=== PATIENT | male | born 1960 | race Caucasian/White ===

== ENCOUNTER 2017-03-14 15:24 | Emergency (ER) | payer MEDICAID, OTHER ==
[~2017-03-14] VITALS: Ht 177.8 cm; Wt 72.8 kg
[2017-03-14 15:26] VITALS: Ht 177.8 cm; Wt 72.8 kg
--- NOTE | 2017-03-14 16:50 | ERD ---
ER Documentation Chief Complaint Chief Complaint Sent from for dominik HTN HPI This is a 57-year-old male who is presenting with hypertension. The patient was reportedly at a dermatology appointment when he was found to have a blood pressure of 180/108. His clinic encouraged him to come to the emergency department to get blood work completed for evaluation of endorgan damage related to his elevated blood pressure. The patient has no complaints. The patient denies feeling sick recently. The patient denies fever or chills. The patient has had no headache or vision changes. The patient does not endorse neck or back pain. The patient denies lightheadedness or dizziness. The patient has had no chest pain or shortness of breath or trouble breathing. The patient denies nausea or vomiting. The patient denies abdominal pain or changes to bowel movements or urination. The patient has had no focal deficits. The patient has had no weakness or numbness or tingling to the face or extremities. ROS All systems reviewed and are negative except as per history of present illness. Allergies Allergies: Coded Allergies: No Known Allergy (Unverified , 03/14/17) PMhx/Soc History of Surgery: No Hx Neurological Disorder: No Hx Respiratory Disorders: No Hx Cardiac Disorders: No Hx Psychiatric Problems: No Hx Miscellaneous Medical Probl: Yes (Skin tag on the scalp) Hx Alcohol Use: Yes (occasional) Hx Substance Use: No Hx Tobacco Use: No Smoking Status: Never smoker FmHx Family History: No coronary disease, No diabetes Physical Exam Vitals Vital Signs Date Time Temp Pulse Resp B/P Pulse Ox O2 Delivery O2 Flow Rate FiO2 03/14/17 17:08 Nasal Cannula 03/14/17 15:26 98.3 77 20 201/110 99 Physical Exam Const: No apparent distress, well-developed, well-nourished Head: Normocephalic, Atraumatic Eyes: Normal Conjunctiva. Extraocular movements intact. Pupils equal, round and reactive to light ENT: Normal External Ears, Nose and Mouth. Neck: Full range of motion. No meningismus. Resp: Clear to auscultation bilaterally, No wheezes, rales or rhonchi Cardio: Regular rate and rhythm. No murmurs, rubs or gallops Abd: Soft, non tender, non distended. Normal bowel sounds Skin: No petechiae or rashes Back: No midline tenderness. No CVA tenderness Ext: No cyanosis, or edema Neur: Awake and alert, oriented 4. Cranial nerves intact. No facial droop. Normal strength, sensation and coordination. Psych: Normal Mood and Affect Result Diagram: 03/14/17 1650 03/14/17 1650 Results 24 hrs Laboratory Tests Test 03/14/17 16:50 White Blood Count 8.510^3/ul Red Blood Count 5.0110^6/ul Hemoglobin 16.4g/dl Hematocrit 48.5% Mean Corpuscular Volume 96.8fl Mean Corpuscular Hemoglobin 32.7pg Mean Corpuscular Hemoglobin Concent 33.8g/dl Red Cell Distribution Width 12.3% Platelet Count 83024^3/UL Mean Platelet Volume 9.5fl Neutrophils % 65.4% Lymphocytes % 24.6% Monocytes % 7.1% Eosinophils % 0.9% Basophils % 1.5% Nucleated Red Blood Cells % 0.0/100WBC Neutrophils # 5.610^3/ul Lymphocytes # 2.110^3/ul Monocytes # 0.610^3/ul Eosinophils # 0.110^3/ul Basophils # 0.110^3/ul Nucleated Red Blood Cells # 0.010^3/ul Sodium Level 144mmol/L Potassium Level 4.5mmol/L Chloride Level 104mmol/L Carbon Dioxide Level 28mmol/L Anion Gap 17 Blood Urea Nitrogen 23mg/dl Creatinine 1.08mg/dl Glucose Level 115mg/dl Calcium Level 9.7mg/dl Troponin I < 0.012ng/ml Procedures/MDM MDM The patient's presentation warrants further investigation. The patient's blood pressure is elevated in the emergency department with an initial blood pressure of 201/110. I checked it myself with the arm relaxed and at the level of the heart, and I found it to be at 171/94. The patient has no complaints, indicating asymptomatic hypertension. This will need to be medically managed by a primary care physician, but I have low suspicion for hypertensive urgency or emergency at this time. LABS The patient's blood work was obtained and reviewed. The patient's CBC shows no leukocytosis and no left shift. The patient is afebrile and does not appear systemically ill. I do not suspect a systemic infection. The patient is not anemic today. The patient's platelet count is unremarkable. The patient's BMP shows no signs of metabolic or electrolyte emergencies. The BUN is mildly elevated which could demonstrate a component of dehydration. The patient has unremarkable renal function testing. The patient's troponin is negative. EKG EKG read by me: Rate/Rhythm: Regular rate and rhythm at a rate of 74 bpm Intervals: Normal [place]: Normal T-wave inversions in the inferior and lateral leads, but no ST changes concerning for acute coronary syndrome. Impression: No evidence of acute ischemia or arrhythmia IMAGING CXR 1V Interpreted by me Soft Tissue: No acute abnormalities Bones: No acute abnormalities Mediastinum/Cardiac Silhouette: Unremarkable. No widened mediastinum. Lungs: No acute abnormalities. Normal pulmonary vasculature. No pneumothorax. No pulmonary edema. Clear costal diaphragmatic angles. No pleural effusions. No opacity or consolidations concerning for pneumonia. TREATMENT/DISPOSITION The patient's presentation is reassuring. He may require medication for blood pressure, but it would be better to follow-up with primary care physician who can longitudinally monitor his course. In the meantime, he may try diet and exercise modification. At this time, I feel that the patient stable for discharge. The patient will need follow-up with his primary care physician in 2-3 days. The patient will be given strict precautions with which to return to the emergency department. The patient's blood pressure was elevated at greater than 120/80 while in the emergency department. The patient was otherwise stable with no evidence of hypertensive urgency or emergency or end organ damage. The patient does not require admission for blood pressure control. I have discussed with the patient the risks of hypertension. I have advised the patient to follow up with the primary care physician for outpatient monitoring and treatment for hypertension in 2-3 days. I have instructed the patient to return to the ER for any new or worsening symptoms including chest pain, shortness of breath, headache, blurred vision, confusion, nausea, vomiting or LOC. Disclaimer: Inadvertent spelling and grammatical errors are likely due to EHR/ dictation software use and do not reflect on the overall quality of patient care. Note that the electronic time recorded on this note does not necessarily reflect the actual time of the patient encounter. Departure Diagnosis: Primary Impression: Hypertension Hypertension type: unspecified Qualified Code: I10 - Hypertension, unspecified type Condition: PAULA Carlisle MD Mar 14, 2017 16:50
[2017-03-14 17:07] LABS: BASOPHIL # 0.1 10^3/ul (0.0-0.1); BASOPHILS % 1.5 % (0.0-2.0); EOSINOPHILS # 0.1 10^3/ul (0.0-0.5); EOSINOPHILS % 0.9 % (0.0-7.0); HEMATOCRIT 48.5 % (42.0-52.0); HEMOGLOBIN 16.4 g/dl (14.0-18.0); LYMPHOCYTES # 2.1 10^3/ul (0.8-2.9); LYMPHOCYTES % 24.6 % (15.0-51.0); MEAN CORPUSCULAR HEMOGLOBIN 32.7 pg (29.0-33.0); MEAN CORPUSCULAR HGB CONC 33.8 g/dl (32.0-37.0); MEAN CORPUSCULAR VOLUME 96.8 fl (82.0-101.0); MEAN PLATELET VOLUME 9.5 fl (7.4-10.4); MONOCYTE # 0.6 10^3/ul (0.3-0.9); MONOCYTES % 7.1 % (0.0-11.0); NEUTROPHIL # 5.6 10^3/ul (1.6-7.5); NEUTROPHILS % 65.4 % (39.0-77.0); PLATELET COUNT 227 10^3/UL (140-415); RED BLOOD COUNT 5.01 10^6/ul (4.70-6.10); RED CELL DISTRIBUTION WIDTH 12.3 % (11.5-14.5); WHITE BLOOD COUNT 8.5 10^3/ul (4.8-10.8)
--- NOTE | 2017-03-14 17:25 | RADRPT ---
PROCEDURE: XR Chest. CLINICAL INDICATION: Chest pain. TECHNIQUE: Single frontal view. COMPARISON: None. FINDINGS: The lungs are clear. The heart size is normal. There is no pleural effusion. There is no pneumothorax. IMPRESSION: 1. Normal chest radiograph. RPTAT: QQ .Mauricio Quiñonez MD, Date Time Electronically viewed and signed by .Mauricio Quiñonez MD, on 03/14/2017 17:25 .R/
[2017-03-14 17:41] LABS: CALCIUM 9.7 mg/dl (8.4-10.2); CREATININE 1.08 mg/dl (0.61-1.24); POTASSIUM 4.5 mmol/L (3.5-5.1)
[2017-03-14 18:47] VITALS: BP 168/109; PULSE 63; RESP 20
== END 2017-03-14 18:49 | disposition home or self-care (01) ==
LOC: E/R 15:24
DX: I10 Essential (primary) hypertension (principal); R40.2362 Coma scale, best motor response, obeys commands, at arrival to emergency department; R40.2142 Coma scale, eyes open, spontaneous, at arrival to emergency department
CPT/HCPCS: 36415; 71010; 80048; 84484; 85025; Z7502